=== PATIENT | female | born 1940 | race Caucasian/White ===

== ENCOUNTER 2017-01-13 06:10 | Emergency (ER) | payer BC, MEDICARE, OTHER ==
[2017-01-13] MEDS ORDERED: Albuterol 2.5 MG/3 ML NEB.SOL* (0.083%) INH ONE ×2 (06:59→08:58)
[2017-01-13] MEDS ORDERED: NS 0.9% 1000 ML* 1,000 ML IV ONE (06:59)
[2017-01-13] MEDS ORDERED: Ondansetron INJ* 2 MG/ML VIAL IV ONE (06:59)
--- NOTE | 2017-01-13 07:26 | ED ---
Influenza-Like Illness - HPI Summary HPI Summary: Patient presents with one week of cough, chest congestion and runny nose. She saw her PCP 5 days ago and was diagnosed with bronchitis, placed on docycycline , Advair and tessalon perles. She feels that she has gotten worse over the week and is now wheezing. She has a history of asthma and has been using her albuterol inhaler every 4 hours with minimal relief. She has had a subjective fever and chills. She is now nauseous, but has been able to eat and drink over the week. She had two episodes of diarrhea earlier in the week that has now resolved. No CP, sore throat, myalgias, abdominal pain or back pain. She has had an intermittent headache that resolves spontaneously. - History of Current Complaint Chief Complaint: EDUpperRespComplaint Time Seen by Provider: 01/13/17 06:50 Hx Obtained From: Patient, Family/Child Welfare Social Worker Onset/Duration: Gradual Onset Severity: Severe Associated Signs & Symptoms: Cough, Nasal Congestion, Headache - intermittent - Allergy/Home Medications Allergies/Adverse Reactions: Allergies Allergy/AdvReac Type Severity Reaction Status Date / Time Aspirin Allergy Intermediate Hives Verified 05/16/14 03:54 Penicillins Allergy Intermediate Diarrhea Verified 05/16/14 03:54 Codeine Allergy Unknown Verified 05/16/14 03:54 Reaction Details PMH/Surg Hx/FS Hx/Imm Hx Endocrine/Hematology History: Reports: Hx Diabetes Cardiovascular History: Reports: Hx Hypertension Respiratory History: Reports: Hx Asthma Psychiatric History: Reports: Hx Depression Infectious Disease History: No Infectious Disease History: Denies: Traveled Outside the [place] in Last 30 Days - Social History Occupation: Retired Lives: With Family Alcohol Use: None Substance Use Type: Reports: None Smoking Status (MU): Never Smoked Tobacco Review of Systems Positive: Fever - subjective, Chills, Fatigue Negative: Blurred Vision, Diplopia, Drainage Positive: Nasal Discharge. Negative: Sore Throat, Ear Ache Negative: Palpitations, Chest Pain Positive: Shortness Of Breath, Cough Positive: Nausea. Negative: Abdominal Pain, Vomiting Negative: Myalgia, Edema Negative: Weakness, Paresthesia, Numbness All Other Systems Reviewed And Are Negative: Yes Physical Exam Triage Information Reviewed: Yes Vital Signs On Initial Exam: Initial Vitals Temp Pulse Resp BP Pulse Ox 98.3 F 64 20 155/64 95 01/13/17 06:12 01/13/17 06:12 01/13/17 06:12 01/13/17 06:12 01/13/17 06:12 Vital Signs Reviewed: Yes Appearance: Positive: Well-Appearing, No Pain Distress, Obese Skin: Positive: Warm, Skin Color Reflects Adequate Perfusion, Dry, Soft Head/Face: Positive: Normal Head/Face Inspection Eyes: Positive: EOMI, JEWELS, Conjunctiva Clear ENT: Positive: Hearing grossly normal, Pharynx normal Neck: Positive: Supple, Nontender, No Lymphadenopathy Respiratory/Lung Sounds: Positive: Breath Sounds Present, Wheezes - bilateral bases. Negative: Rales Cardiovascular: Positive: RRR Abdomen Description: Positive: Nontender, Soft. Negative: CVA Tenderness (R), CVA Tenderness (L) Bowel Sounds: Positive: Present Musculoskeletal: Positive: Strength/ROM Intact. Negative: Edema Left, Edema Right Neurological: Positive: Sensory/Motor Intact, Alert, Oriented to Person Place, Time, NV Bundle Intact Distally Psychiatric: Positive: Affect/Mood Appropriate AVPU Assessment: Alert Diagnostics - Vital Signs Vital Signs Temp Pulse Resp BP Pulse Ox 01/13/17 06:12 98.3 F 64 20 155/64 95 - Laboratory Result Diagrams: 01/13/17 08:05 01/13/17 08:05 Lab Statement: Any lab studies that have been ordered have been reviewed, and results considered in the medical decision making process. - Radiology No standard instances Xray Interpretation: No Acute Changes Radiology Interpretation Completed By: Radiologist Re-Evaluation - Re-Evaluation First Eval Re-Evaluation Time: 08:15 Change: Improved - mild improvement in breathing after first breathing treatment Second Eval Re-Evaluation Time: 09:35 Change: Improved Comment: breathing much improved after second breathing treatment Flu Symptom Course/Dx - Course Course Of Treatment: Dr. Martinez's office was called to arrange an order for a home nubulizer and albuteral prescription. His office has arranged this, so the patient will obtain these and follow-up with his office next week. - Diagnoses Differential Diagnosis/HQI/PQRI: Positive: Bronchitis, Influenza, Pneumonia, RSV , Upper Respiratory Infection Provider Diagnoses: Bronchitis, Asthma exacerbation Discharge - Discharge Plan Condition: Stable Disposition: HOME Patient Education Materials: How to Use a Nebulizer (ED), Acute Bronchitis (ED) Referrals: Reese Martinez MD [Primary Care Provider] - Additional Instructions: Please obtain the nebulizer and medication. Use these as directed and follow-up with Dr. Martinez's office in the next 3-5 days for evaluation. Please drink extra fluids to keep your mucus thin and loose. Return to the emergency department if your symptoms worsen.
--- NOTE | 2017-01-13 07:51 | RAD ---
HISTORY: Shortness of breath, pneumonia COMPARISONS: None VIEWS: 2: Frontal dual-energy and lateral views of the chest. FINDINGS: CARDIOMEDIASTINAL SILHOUETTE: The cardiomediastinal silhouette is normal. KAYE: The kaye are normal. PLEURA: The costophrenic angles are sharp. No pleural abnormalities are noted. LUNG PARENCHYMA: The lungs are clear. ABDOMEN: The upper abdomen is clear. There is no subphrenic gas. BONES AND SOFT TISSUES: No bone or soft tissue abnormalities are noted. OTHER: None. IMPRESSION: NO ACTIVE CARDIOPULMONARY DISEASE.
[2017-01-13 08:15] LABS: Hematocrit 42 % (35-47); Hemoglobin 13.8 g/dl (12.0-16.0); Mean Corpuscular HGB Conc 33 g/dl (31-36); Mean Corpuscular Hemoglobin 32 pg (27-31); Mean Corpuscular Volume 98 fL (80-97); Mean Platelet Volume 9 um3 (7.4-10.4); Red Blood Count 4.24 10^6/ul (4.0-5.4); Red Cell Distribution Width 12 % (10.5-15); White Blood Count 6.5 10^3/ul (3.5-10.8)
[2017-01-13 08:36] LABS: BUN/Creatinine Ratio 15.2 (8-20); C Reactive Protein 9.71 mg/L (< 5.00); Calcium 9.1 mg/dL (8.6-10.3); EGFR African American 91.2 (>60); EGFR Non-African American 70.9 (>60); Globulin 3.4 g/dL (2-4); Total Bilirubin 0.6 mg/dL (0.2-1.0); Total Protein 7.4 g/dL (6.4-8.9)
[2017-01-13 09:59] VITALS: BP 110/70
== END 2017-01-13 09:58 | disposition home or self-care (01) ==
LOC: ED 06:10
DX: J45.901 Unspecified asthma with (acute) exacerbation (principal); J40 Bronchitis, not specified as acute or chronic; E11.9 Type 2 diabetes mellitus without complications; I10 Essential (primary) hypertension; Z88.6 Allergy status to analgesic agent; Z88.0 Allergy status to penicillin; Z88.5 Allergy status to narcotic agent
CPT/HCPCS: 36415; 71020; 80053; 85025; 86140; 94640; 96360; 96374; 99283; J2405

== ENCOUNTER 2018-02-03 08:32 | Emergency (ER) | payer MEDICARE ==
[2018-02-03] MEDS ORDERED: HYDROcodone/ACETAMIN 5-325 MG* 1 TAB PO ONE (09:13)
--- NOTE | 2018-02-03 09:15 | RAD ---
HISTORY: Fall, left hip pain COMPARISONS: October 19, 2013 VIEWS: 3, Frontal view of the pelvis with frontal and frog-leg views of the left hip FINDINGS: BONE DENSITY: Normal. BONES: The patient is status post left hip arthroplasty. There is no hardware failure or osteolysis. JOINTS: The patient is status post left hip arthroplasty. 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 ALIGNMENT: There is no dislocation. SOFT TISSUES: Unremarkable. OTHER FINDINGS: Degenerative changes are noted of the spine. IMPRESSION: STATUS POST LEFT HIP ARTHROPLASTY. NO ACUTE OSSEOUS INJURY. IF SYMPTOMS PERSIST, RECOMMEND REPEAT IMAGING.
--- NOTE | 2018-02-03 10:01 | ED ---
Rodney Pena Gabriel, scribed for Gilmar Pennington MD on 02/03/18 at 0838 . Adult Trauma - HPI Summary HPI Summary: This patient is a 77 year old F BIBA to [facility] s/p fall landing on her L hip. 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 The patient rates the pain 7/10 in severity. Patient reports left hip pain. Pt denies LOC. She has a follow up in 2 days at [place] for the hip replacement. - History of Current Complaint Stated Complaint: FALL/LT HIP INJURY Hx Obtained From: Patient Mechanism of Injury: Fall Ambulatory at the Scene: Yes Loss of Consciousness: no loss of consciousness Onset/Duration: Started Hours Ago, Still Present Onset of Pain: Immediate Onset Severity: Severe Current Severity: Severe Pain Intensity: 7 Pain Scale Used: 0-10 Numeric Associated Signs & Symptoms: Positive: Other: - left hip pain. Negative: Loss of Consciousness - Allergy/Home Medications Allergies/Adverse Reactions: Allergies Allergy/AdvReac Type Severity Reaction Status Date / Time bupropion Allergy Pain Verified 02/03/18 09:12 codeine Allergy Unknown Verified 02/03/18 09:12 Reaction Details Penicillins Allergy Diarrhea Verified 02/03/18 09:10 ASPIRIN Allergy Hives Uncoded 02/03/18 09:09 IBUPROFEN Allergy Nausea And Uncoded 02/03/18 09:09 Vomiting ZOCOR Allergy See Comment Uncoded 02/03/18 09:12 PMH/Surg Hx/FS Hx/Imm Hx Endocrine/Hematology History: Reports: Hx Diabetes Denies: Hx Anticoagulant Therapy, Hx Thyroid Disease Cardiovascular History: Reports: Hx Hypercholesterolemia, Hx Hypertension Denies: Hx Pacemaker/ICD Respiratory History: Reports: Hx Asthma Denies: Hx Chronic Obstructive Pulmonary Disease (COPD) GI History: Reports: Other GI Disorders - pelvic pain,gerd Denies: Hx Ulcer History: Reports: Other Problems/Disorders - bladder repair per pt Denies: Hx Renal Disease Musculoskeletal History: Reports: Hx Osteoporosis, Other Musculoskeletal History - knee replacements Denies: Hx Rheumatoid Arthritis, Hx Scoliosis Neurological History: Reports: Hx Headaches - NOW Denies: Hx Dementia, Hx Seizures, Other Neuro Impairments/Disorders Psychiatric History: Reports: Hx Depression Denies: Hx Substance Abuse - Surgical History Surgery Procedure, Year, and Place: hysterectomy 1976 benign.bladder repair x 3 for incontinence.tonsilectomy, appendectomy, knees,cataracts Infectious Disease History: Denies: Hx Hepatitis, Hx Human Immunodeficiency Virus (HIV) - Family History Known Family History: Positive: Hypertension Negative: Respiratory Disease, Seizure Disorder - Social History Alcohol Use: None Substance Use Type: Reports: None Smoking Status (MU): Never Smoked Tobacco Review of Systems Positive: Other - mechanical fall Positive: Other - LLE pain Neurological: Negative - LOC All Other Systems Reviewed And Are Negative: Yes Physical Exam - Summary Physical Exam Summary: VITAL SIGNS: Reviewed. GENERAL: Patient is a well-developed and nourished female who is lying comfortable in the stretcher. Patient is not in any acute respiratory distress. HEAD AND FACE: No signs of trauma. No ecchymosis, hematomas or skull depressions. No sinus tenderness. EYES: PERRLA, EOMI x 2, No injected conjunctiva, no nystagmus. EARS: Hearing grossly intact. Ear canals and tympanic membranes are within normal limits. MOUTH: Oropharynx within normal limits. NECK: Supple, trachea is midline, no adenopathy, no JVD, no carotid bruit, no c- spine tenderness, neck with full ROM. CHEST: Symmetric, no tenderness at palpation LUNGS: Clear to auscultation bilaterally. No wheezing or crackles. CVS: Regular rate and rhythm, S1 and S2 present, no murmurs or gallops appreciated. ABDOMEN: Soft, non-tender. No signs of distention. No rebound no guarding, and no masses palpated. Bowel sounds are normal. EXTREMITIES: FROM in all major joints, no edema, no cyanosis or clubbing. LE have full ROM, no deformities or shorting. NEURO: Alert and oriented x 3. No acute neurological deficits. Speech is normal and follows commands. SKIN: surgical incision on the left hip that is clean, dry, and intact. Triage Information Reviewed: Yes Vital Signs On Initial Exam: Initial Vitals Temp Pulse Resp BP Pulse Ox 99.5 F 89 16 128/70 96 02/03/18 08:41 02/03/18 08:41 02/03/18 08:41 02/03/18 08:41 02/03/18 08:41 Vital Signs Reviewed: Yes Diagnostics - Vital Signs Vital Signs Temp Pulse Resp BP Pulse Ox 02/03/18 08:41 99.5 F 89 16 128/70 96 - Laboratory Lab Statement: Any lab studies that have been ordered have been reviewed, and results considered in the medical decision making process. - Radiology Hip Xray Radiology Interpretation Completed By: Radiologist - STATUS POST LEFT HIP ARTHROPLASTY. NO ACUTE OSSEOUS INJURY. IF SYMPTOMS PERSIST, RECOMMEND REPEAT IMAGING. ED physician has reviewed this radiology report. Adult Trauma Course/Dx - Course Assessment/Plan: This patient is a 77 year old F BIBA to [facility] s/p fall landing on her L hip. 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 The patient rates the pain 7/10 in severity. Patient reports hip pain. Pt denies LOC. She has a follow up in 2 days at [place] for the hip replacement. Hip XR reveals, per radiologist, STATUS POST LEFT HIP ARTHROPLASTY. NO ACUTE OSSEOUS INJURY. IF SYMPTOMS PERSIST, RECOMMEND. REPEAT IMAGING. In the ED course the patient was given [place]. After medications she is ambulating in her own w/o no significant pain. Shas a good and steady walk. Dx hip pain. Patient will be discharged and follow up from [facility] in [place]. The patient is agreeable with this plan. - Diagnoses Differential Diagnosis/HQI/PQRI: Positive: Contusion(s), Fracture, Dislocation, Sprain, Strain Provider Diagnoses: Hip pain Discharge - Discharge Plan Condition: Stable Disposition: HOME Patient Education Materials: Hip Pain (ED) Referrals: Reese Martinez MD [Primary Care Provider] - 3 Days Additional Instructions: Keep your follow up appointment in [place]. RETURN TO EMERGENCY DEPARTMENT FOR ANY NEW OR WORSENING SYMPTOMS The documentation as recorded by the Rodney duvall Gabriel accurately reflects the service I personally performed and the decisions made by , Gilmar Pennington MD.
[2018-02-03 10:39] VITALS: BP 170/73
== END 2018-02-03 10:37 | disposition home or self-care (01) ==
LOC: ED 08:32
DX: M25.552 Pain in left hip (principal); Z86.79 Personal history of other diseases of the circulatory system
CPT/HCPCS: 99282

== ENCOUNTER 2021-03-11 14:11 | Observation (INO) ==
[2021-03-11 14:45] LABS: ABS Eosinophils 0.1 10^3/ul (0-0.6); ABS Lymphocytes 1.9 10^3/ul (1.0-4.8); ABS Monocytes 0.4 10^3/ul (0-0.8); ABS Neutrophils 4.2 10^3/ul (1.5-7.7); Eosinophil % 2.1 %; Hematocrit 39 % (35-47); Hemoglobin 12.9 g/dL (12.0-16.0); Lymphocyte % 28.6 %; Mean Corpuscular HGB Conc 33 g/dL (31-36); Mean Corpuscular Hemoglobin 33 pg (27-31); Mean Corpuscular Volume 99 fL (80-97); Mean Platelet Volume 9.1 fL (7.4-10.4); Platelet Count 229 10^3/uL (150-450); Red Blood Count 3.94 10^6 /uL (3.70-4.87); Red Cell Distribution Width 14 % (10-15); White Blood Count 6.7 10^3/uL (3.5-10.8)
[2021-03-11 15:00] LABS: Albumin 4.2 g/dL (3.2-5.2); BUN/Creatinine Ratio 19.6 (8-20); Calcium 9.1 mg/dL (8.6-10.3); EGFR African American 71.1 (>60); EGFR Non-African American 58.7 (>60); Potassium 3.8 mmol/L (3.5-5.0); Total Protein 7.2 g/dL (6.4-8.9)
[2021-03-11 15:01] LABS: Albumin/Globulin Ratio 1.4 (1-3); Total Bilirubin 0.4 mg/dL (0.2-1.0)
[2021-03-11 15:02] LABS: Troponin I 0.01 ng/mL (<0.03)
[2021-03-11 15:29] LABS: TSH Ultra Thyroid Stim Horm 1.55 mcIU/mL (0.34-5.60)
[2021-03-11 16:17] LABS: Urine Appearance Clear; Urine Bilirubin Negative (Negative); Urine Blood Negative (Negative); Urine Color Yellow; Urine Glucose Negative (Negative); Urine Ketones Negative (Negative); Urine Nitrite Negative (Negative); Urine Protein Negative (Negative); Urine Specific Gravity 1.009 (1.002-1.030); Urine Urobilinogen Negative (Negative)
[2021-03-11] MEDS ORDERED: Al Hydrox/Mg Hydrox/Simet LIQ 30 ML UDC PO PRN (17:13)
[2021-03-11] MEDS ORDERED: NS 0.9% 1000 ml BAG 1,000 ML IV SCH (18:00)
[2021-03-11] MEDS: Heparin 5000 UNITS/ML 1 mL VIAL SUBCUT SCH (20:22)
[2021-03-12] MEDS: Heparin 5000 UNITS/ML 1 mL VIAL SUBCUT SCH (05:18)
[2021-03-12 15:27] VITALS: BP 135/77
== END 2021-03-12 14:33 | disposition home or self-care (01) ==
LOC: MEDTELE 14:11 → ED 14:11
PROVIDERS: ADMIT Internal Medicine; ATTEND Pediatrics

== ENCOUNTER 2024-12-18 12:43 | Inpatient (IN) ==
[2024-12-18] MEDS: Lactated Ringers 1000 ml BAG 1,000 ML IV ONE ×2 (12:49→13:57)
[2024-12-18 13:17] LABS: ABS Basophils 0.1 10^3/uL (0.0-0.1); ABS Lymphocytes 2.5 10^3/uL (1.0-4.8); ABS Neutrophils 18.1 10^3/uL (1.5-7.6); ABS Nucleated RBC 0.01 10^3/ul; Eosinophil % 0.1 %; Hematocrit 45.5 % (35-45); Hemoglobin 14.7 g/dL (11.5-14.3); Lymphocyte % 11.6 %; Mean Corpuscular Hemoglobin 33.8 pg (27-33); Mean Corpuscular Hgb Conc 32.4 g/dL (31-36); Mean Corpuscular Volume 104.2 fL (80-97); Mean Platelet Volume 9.5 fL (7.5-11.2); Platelet Count 260 10^3/uL (150-450); Red Blood Count 4.37 10^6/uL (3.63-4.92); Red Cell Distribution Width 12.8 % (12-17); White Blood Count 21.8 10^3/uL (3.8-11.8)
[2024-12-18 13:28] LABS: INR 1.08 (0.85-1.14)
[2024-12-18 13:29] LABS: Activated Partial Thrombo Time 27.3 seconds (26.0-38.0)
[2024-12-18 13:50] LABS: Urine Appearance Turbid; Urine Bilirubin Negative (Negative); Urine Blood 2+ (Negative); Urine Color Yellow; Urine Glucose Negative (Negative); Urine Ketones Negative (Negative); Urine Nitrite Negative (Negative); Urine Protein 1+ (>=30 mg/dL) (Negative); Urine Specific Gravity 1.023 (1.002-1.030); Urine Urobilinogen Negative (Negative)
[2024-12-18 13:55] LABS: Urine Bacteria Absent /HPF (Absent); Urine Red Blood Cell Trace(0-2/hpf) /HPF (0-Trace); Urine Squamous Epithelial Cell Present /HPF (Absent); Urine White Blood Cell Trace(0-5/hpf) /HPF (0-Trace)
[2024-12-18 14:54] LABS: Albumin 4.6 g/dL (3.5-5.7); Albumin/Globulin Ratio 1.5 (1-3); Calcium 9.9 mg/dL (8.6-10.3); Creatinine, Serum 1.26 mg/dL (0.51-0.95); Direct Bilirubin 0.1 mg/dL (0.03-0.18); HDL Cholesterol 57.7 mg/dL; Indirect Bilirubin 0.6 mg/dL (0.3-1.0); Potassium 4.1 mmol/L (3.5-5.0); Total Bilirubin 0.7 mg/dL (0.2-1.0); Total Protein 7.6 g/dL (6.4-8.9); eGFR CKD-EPI 42.4 (>60)
[2024-12-18] MEDS: Iodixanol 320 (CONTRAST) 100 ML SDV IV ONE (15:57)
[2024-12-18] MEDS: Lactated Ringers 1000 ml BAG 1,000 ML IV SCH (15:58)
[2024-12-18] MEDS: Silver Sulfadiazine 1% 20 gm TUBE TOPICAL SCH (17:53)
[2024-12-18] MEDS: Enoxaparin 40 MG/0.4 ML SYR SUBCUT SCH (17:53)
[2024-12-18] MEDS: Acetaminophen IV 1 GM/100ML 1,000 MG/100 ML BAG IV PRN (18:25)
[2024-12-19 05:26] LABS: ABS Lymphocytes 1.2 10^3/uL (1.0-4.8); ABS Monocytes 1.3 10^3/uL (0.0-0.9); ABS Neutrophils 10.7 10^3/uL (1.5-7.6); ABS Nucleated RBC 0.01 10^3/ul; Hematocrit 37.1 % (35-45); Hemoglobin 12.5 g/dL (11.5-14.3); Lymphocyte % 8.7 %; Mean Corpuscular Hemoglobin 34.6 pg (27-33); Mean Corpuscular Hgb Conc 33.8 g/dL (31-36); Mean Corpuscular Volume 102.2 fL (80-97); Mean Platelet Volume 9.9 fL (7.5-11.2); Nucleated Red Blood Cells % 0.1 %/100WBC (0.0-0.8); Platelet Count 197 10^3/uL (150-450); Red Blood Count 3.63 10^6/uL (3.63-4.92); Red Cell Distribution Width 12.8 % (12-17); White Blood Count 13.3 10^3/uL (3.8-11.8)
[2024-12-19 06:13] LABS: Calcium 8.8 mg/dL (8.6-10.3); Creatinine, Serum 0.94 mg/dL (0.51-0.95); Magnesium 1.8 mg/dL (1.9-2.7); Potassium 3.9 mmol/L (3.5-5.0); eGFR CKD-EPI 60.2 (>60)
[2024-12-19] MEDS: Polyethylene Glycol 3350 17 GM PACKET PO SCH (06:32)
[2024-12-19] MEDS: Tetan/Diph/Pertus SYR(Tdap) 0.5 ML SYR(BOOSTRIX) use SYR contains LATEX IM ONE (17:20)
[2024-12-19] MEDS ORDERED: Lactated Ringers 1000 ml BAG 1,000 ML IV SCH (18:00)
[2024-12-20 06:37] LABS: ABS Lymphocytes 1.4 10^3/uL (1.0-4.8); ABS Neutrophils 6.6 10^3/uL (1.5-7.6); Eosinophil % 0.3 %; Hematocrit 33.7 % (35-45); Hemoglobin 11.2 g/dL (11.5-14.3); Lymphocyte % 15.4 %; Mean Corpuscular Hgb Conc 33.4 g/dL (31-36); Mean Corpuscular Volume 104.9 fL (80-97); Mean Platelet Volume 9.5 fL (7.5-11.2); Platelet Count 143 10^3/uL (150-450); Red Blood Count 3.21 10^6/uL (3.63-4.92); Red Cell Distribution Width 12.8 % (12-17)
[2024-12-20] MEDS: Magnesium Sulfate 2 gm BAG 2 GM/50 ML BAG IVPB ONE ×2 (08:04→13:30)
[2024-12-20 08:12] LABS: Calcium 8.3 mg/dL (8.6-10.3); Creatinine, Serum 0.87 mg/dL (0.51-0.95); Magnesium 1.7 mg/dL (1.9-2.7); Potassium 3.8 mmol/L (3.5-5.0); eGFR CKD-EPI 66.1 (>60)
[2024-12-20] MEDS: Magnesium Sulfate IV 1GM/100ML 1 GM/100 ML BAG IV ONE (15:02)
[2024-12-20] MEDS: Lactated Ringers 1000 ml BAG 1,000 ML IV SCH (19:52)
[2024-12-21 05:59] LABS: ABS Basophils 0.1 10^3/uL (0.0-0.1); ABS Eosinophils 0.1 10^3/uL (0.0-0.5); ABS Lymphocytes 1.4 10^3/uL (1.0-4.8); ABS Monocytes 0.8 10^3/uL (0.0-0.9); ABS Neutrophils 4.9 10^3/uL (1.5-7.6); Eosinophil % 1.1 %; Hematocrit 29.6 % (35-45); Hemoglobin 10.2 g/dL (11.5-14.3); Lymphocyte % 19.5 %; Mean Corpuscular Hemoglobin 35.6 pg (27-33); Mean Corpuscular Hgb Conc 34.5 g/dL (31-36); Mean Corpuscular Volume 103.4 fL (80-97); Mean Platelet Volume 9.3 fL (7.5-11.2); Platelet Count 136 10^3/uL (150-450); Red Blood Count 2.87 10^6/uL (3.63-4.92); Red Cell Distribution Width 12.7 % (12-17); White Blood Count 7.2 10^3/uL (3.8-11.8)
[2024-12-21 06:19] LABS: Calcium 7.8 mg/dL (8.6-10.3); Creatinine, Serum 0.81 mg/dL (0.51-0.95); Magnesium 2.3 mg/dL (1.9-2.7); Potassium 4.2 mmol/L (3.5-5.0)
[2024-12-22 09:39] VITALS: BP 109/48
[2024-12-22 13:07] LABS: ABS Eosinophils 0.1 10^3/uL (0.0-0.5); ABS Monocytes 1.2 10^3/uL (0.0-0.9); ABS Neutrophils 4.6 10^3/uL (1.5-7.6); Eosinophil % 1.4 %; Hemoglobin 11.6 g/dL (11.5-14.3); Lymphocyte % 14.6 %; Mean Corpuscular Hemoglobin 35.2 pg (27-33); Mean Corpuscular Volume 103.7 fL (80-97); Mean Platelet Volume 9.5 fL (7.5-11.2); Nucleated Red Blood Cells % 0.1 %/100WBC (0.0-0.8); Platelet Count 192 10^3/uL (150-450); Red Blood Count 3.28 10^6/uL (3.63-4.92); Red Cell Distribution Width 12.5 % (12-17); White Blood Count 6.9 10^3/uL (3.8-11.8)
[2024-12-22 13:25] LABS: Calcium 8.6 mg/dL (8.6-10.3); Creatinine, Serum 0.82 mg/dL (0.51-0.95); Potassium 4.2 mmol/L (3.5-5.0); eGFR CKD-EPI 70.9 (>60)
== END 2024-12-22 15:00 | disposition home or self-care (01) | DRG 923 ==
LOC: ED 12:43 → SUATTDRO 13:52 → EDHOLD 13:52 → ICU 14:33 → MED 12-19 06:19
PROVIDERS: ADMIT Internal Medicine Critical Care Medicine; ATTEND Internal Medicine